=== PATIENT | female | born 1985 | race Caucasian/White ===

== ENCOUNTER 2018-06-01 13:01 | Observation (INO) ==
--- NOTE | 2018-06-01 13:41 | Surgery Consultation ---
Date of Consultation June 01, 2018 Assessment & Plan (1) Acute appendicitis: 32-year-old female with 1 week history of abdominal pain, outpatient CT scan confirmed acute appendicitis. Plan- recommend Laparoscopic Appendectomy, Possible Open Appendectomy in OR today with Dr. Healy. Risks of surgery reviewed with patient. Patient agrees with treatment plan. Urine test ordered. Patient NPO since last evening. SCDs Supervising Physician Co-Signing Physician Notes Patient seen and examined, labs and imaging reviewed, agree with above. 32 y/o female with 1 week lower abdominal pain, migrated to [facility] over weekend. CT at [facility] with acute, uncomplicated appendicitis. Plan for laparoscopic appendectomy, possible open. Risks reviewed to include bleeding, infection, conversion to open, need for future or more extensive surgery, normal appendix, abscess, and risks of anesthesia. Clindamycin pre op. Plan of care discussed, all questions answered, agrees with plan of care. History of Present Illness Reason for Consultation: Acute Appendicitis History of Present Illness Ms. Durham is a 32-year-old female who presents to ED following outpatient CT scan confirming acute appendicitis. Patient states that she has been having intermittent lower quadrant abdominal pain for the last week. She states that at first she was constipation and she took two doses of Maalox which helped her move her bowels, but her abdominal pain did not resolve. She states that her abdominal pain really increased in intensity in the right lower quadrant yesterday evening. She called he PCP this AM who ordered an outpatient CT scan- ct scan came back showing acute appendicitis. Bloodwork obtained a [facility] showed slight elevation in WBC 11.23. Patient states that she does not take any daily medications. Past surgical history includes x 3, surgery for endometriosis- pt states that she had incisional endometriosis and mesh placement in left abdomen. Patient denies use of blood thinning medications. Allergies Allergy/AdvReac Type Severity Reaction Status Date / Time amoxicillin Allergy Mild Rash Verified 06/01/18 14:34 cephalexin [From Keflex] Allergy Mild Rash Verified 06/01/18 14:34 Home Medications Home Medications Medication Instructions Recorded Confirmed Type No Known Home Medications 06/01/18 06/01/18 History Patient History Medical History Endometriosis (Acute) Surgical History History of section (Acute) Social History Feels Safe at Home: Yes Smoking Status: Never smoker Physical Exam Vital Signs (Past 24 Hours): Last Vital Signs Temp 37.3 C 06/01/18 13:04 Pulse 103 H 06/01/18 13:04 Resp 20 06/01/18 13:04 BP 139/92 06/01/18 13:04 Pulse Ox 98 06/01/18 13:04 Gastrointestinal (Abdomen): Percussion/Palpation: + abdomen tender (right lower quadrant. ) and abdomen soft
[2018-06-01] MEDS ORDERED: SODIUM CHLORIDE 0.9% 1000ML 1,000 ML IV SCH (13:45)
[2018-06-01] MEDS ORDERED: BUPIVACAINE 0.5 % 5 MG/1 ML MPF 30ML VIAL ONE (13:50)
[2018-06-01] MEDS ORDERED: ROCURONIUM BROMIDE 10 MG/ML 5 ML VIAL ONE (14:12)
[2018-06-01] MEDS ORDERED: PROPOFOL IV EMULSION 10 MG/ML 20 ML VIAL IV ONE (14:12)
[2018-06-01] MEDS ORDERED: LIDOCAINE HCL 2% 2 ML VIAL/AMP(20MG/ML) INFIL ONE (14:12)
[2018-06-01] MEDS ORDERED: MIDAZOLAM HCL 1 MG/ML 2ML VIAL ONE (14:13)
[2018-06-01] MEDS ORDERED: fentaNYL citrate 100 MCG/2 ML VIAL ONE ×2 (14:13→15:19)
[2018-06-01 14:46] LABS: Pregnancy Test, Urine Negative (Negative)
[2018-06-01] MEDS ORDERED: fentaNYL citrate 100 MCG/2 ML VIAL IV PRN (14:54)
[2018-06-01] MEDS ORDERED: ONDANSETRON INJ 2 MG/ML 2 ML VIAL IV PRN ×2 (14:54→16:18)
[2018-06-01] MEDS ORDERED: ATROPINE SULFATE 0.1 MG/ML 10ML SYR IV PRN (14:54)
[2018-06-01] MEDS ORDERED: ePHEDrine sulfate 50 MG/ML AMP IV PRN (14:54)
[2018-06-01] MEDS ORDERED: PROMETHAZINE HCL 6.25 MG in SODIUM CHLORIDE 0.9% 50 ML IV PRN (14:54)
[2018-06-01] MEDS ORDERED: HYDROmorphone INJ 2 MG/ML SYR/VIAL IV PRN (14:54)
--- NOTE | 2018-06-01 14:54 | Anesthesiology Consultation ---
Date of Service June 01, 2018 Assessment & Plan (1) Encounter for pre-operative examination: Chart Review Chart Review: Acceptable Risk for Surgery and Patient NOT seen in Pre Admission Testing Consults Requested none ASA [id number] Proposed Anesthesia Anesthesia Type: General Risk / Benefits Reviewed With: PT / POA / Parent / Guardian, Accepts Plan and I nformed Consent Obtained NPO Date Last Intake of Fluids: 06/01/18 Time Last Intake of Fluids: 10:00 Last Intake of Fluids Comment: CT PREP Date Last Intake of Solids: 05/31/18 Time Last Intake of Solids: 23:00 History Surgery Operation Date: 06/01/18 08:20 Proposed Procedures p Laparoscopic Appendectomy - Epifanio Healy, , FACS Height/Weight Height: 5 ft 6 in Weight: 101.4 kg Allergies Allergy/AdvReac Type Severity Reaction Status Date / Time amoxicillin Allergy Mild Rash Verified 06/01/18 14:34 cephalexin [From Keflex] Allergy Mild Rash Verified 06/01/18 14:34 Medications Home Medications Medication Instructions Recorded Confirmed Last Taken No Known Home Medications 06/01/18 06/01/18 Unknown Past Medical History Medical History Endometriosis (Acute) Past Surgical History Surgical History History of section (Acute) Social History Smoking Status: Never smoker Physical Exam Vital Signs Last Vital Signs Temp 36.8 C 06/01/18 14:36 Pulse 96 H 06/01/18 14:36 Resp 20 06/01/18 14:36 BP 153/85 H 06/01/18 14:36 Pulse Ox 98 06/01/18 14:36 Constitutional + obese ENMT Mouth: no TMJ abnormality Thyromental Distance: > or= 3.5 Finger Breadths Mallampati Class: I Neck normal visual inspection and + thick neck Respiratory normal respiratory effort, lungs clear to auscultation normal respiratory effort Cardiovascular RRR, no murmur, no edema Rate/Rhythm: regular rate and regular rhythm Musculoskeletal Extremities: extremities normal to inspection Neurologic moves all extremities Psychiatric Orientation: alert Testing Laboratory Results Urine Test Negative (Negative) 06/01/18 13:18 06/01/18 13:18 Urine Test Negative
[2018-06-01] MEDS ORDERED: ACETAMINOPHEN 1000 MG/100 ML IV IV ONE (15:37)
[2018-06-01] MEDS ORDERED: HYDROmorphone INJ 2 MG/ML SYR/VIAL ONE (15:41)
[2018-06-01] MEDS ORDERED: GLYCOPYRROLATE 0.2 MG/ML VIAL ONE (15:48)
[2018-06-01] MEDS ORDERED: ONDANSETRON INJ 2 MG/ML 2 ML VIAL ONE (15:48)
[2018-06-01] MEDS ORDERED: NEOSTIGMINE METHYLSULFATE 5 MG/5 ML SYR ONE (15:48)
[2018-06-01] MEDS ORDERED: DEXAMETHASONE SOD INJ 4 MG/ML VIAL ONE (15:48)
--- NOTE | 2018-06-01 16:05 | Operative Report ---
Post Operative Report Pre & Post Diagnosis Operation Date: 06/01/18 08:20 Pre-Op Diagnosis: Acute Appendicitis Post-Op Diagnosis: Acute Appendicitis Procedure Operation Date: 06/01/18 08:20 Actual Procedures p Laparoscopic Appendectomy(Not Applicable) - Epifanio Healy DO, POLI Surgeon Epifanio Healy DO, POLI Police Aide Sidra Holden Estimated Blood Loss 5 Findings Consistent with Post-Op Diagnosis aucte, non perforated appendicitis Specimens appendix Anesthesia Type General Complications none Disposition Accompanied Patient To Recovery: No Disposition: Recovery Room Indications 32-year-old female with 1 week of abdominal pain with CT scan that showed acute, uncomplicated appendicitis, plan for laparoscopic appendectomy, possible open. The risks of the procedure were discussed, all questions were answered, and the patient agreed to proceed with surgery as planned. Description of Procedure The patient was properly identified, consented, and taken to the operating room where she was placed in the supine position. General endotracheal anesthesia was induced. SCDs and a safety belt were placed. Preoperative antibiotics were administered. A Ortiz catheter was not placed. The patient's abdomen was prepped and draped in the standard sterile fashion. Surgical timeout was performed and all parties were in agreement that this was the correct patient and procedure to be performed and we continued as planned. A curvilinear infraumbilical incision was made with electrocautery and deepened down to the fascia with blunt dissection. The base of the umbilicus was grasped with a Kunal and elevated towards the ceiling. An incision was made in the midline fascia with a knife and entry into the peritoneum was confirmed. Stay suture of 0 Vicryl was placed and a Flood trocar was inserted. The abdomen was insufflated with carbon dioxide which the patient tolerated without incident. The laparoscope was inserted and no damage from initial trocar placement was noted, no gross abnormalities were noted within the 4 quadrants the abdomen. 5 mm ports were then placed in the left lower quadrant with care not to damage the epigastric vessels, and in the suprapubic midline with care not to damage the bladder. The patient was placed in Trendelenburg position and rotated towards the left. The small bowel was swept away from the right lower quadrant. There were some adhesions of the small bowel to the dilated inflamed appendix. The cecum was grasped with an atraumatic grasper exposing the appendix. The appendix was mildly inflamed and there was no evidence of perforation. There was moderate amount of reactive fluid in the pelvis. A window was created between the base of the appendix and the mesoappendix. A peripheral loaded endoscopic stapler was then used to divide the appendix at its base. A hartley load was then used to divide the mesoappendix. Hemostasis was good. The appendix was placed in an Endo Catch bag and removed through the umbilical port site. The right lower quadrant and pelvis was irrigated and hemostasis was found to be good. 5 mm trochars were removed under direct visualization and the abdomen was allowed to collapse. The umbilical port site fascia was closed with 0 Vicryl suture. The wound was irrigated, and the skin of all ports was closed with 4-0 Monocryl subcuticular sutures. Dermabond was placed over the wounds. The patient was extubated in the operating room and taken to the PACU where she recovered without apparent incident. All sponge, instrument and needle counts were correct at the conclusion of the procedure. The patient tolerated the procedure well. The physician's medical staff assistant was present and scrubbed for the entire the case. She is critical in positioning the patient, prepping and draping, retraction exposure, driving laparoscope, removal of the appendix, closed the incisions, placement of the dressings. I attest to the content of the Intraoperative Record and any orders documented therein. Any exceptions are noted below.
[2018-06-01] MEDS ORDERED: OXYCODONE/ACETAMINOPHEN 5mg/325mg TAB PO PRN ×2 (16:18)
[2018-06-01] MEDS ORDERED: MoRPHine SULFATE 2 MG/ML CARP IV PRN (16:18)
[2018-06-01] MEDS ORDERED: ACETAMINOPHEN 325 MG TAB PO PRN (16:18)
[2018-06-01] MEDS ORDERED: MoRPHine SULFATE 10 MG/ML CARP/VIAL IV PRN (16:18)
[2018-06-01] MEDS ORDERED: MoRPHine SULFATE 4 MG/ML 1 ML CARP\\VIAL IV PRN (16:18)
[2018-06-01] MEDS ORDERED: KETOROLAC 30 MG/ML VIAL ONE (16:23)
--- NOTE | 2018-06-01 16:48 | Anesthesiology Progress Note ---
Date of Service June 01, 2018 Anesthesia Post Procedure Vital Signs Vital Signs: Temp Pulse Pulse Pulse Resp BP BP 06/01/18 16:35 72 12 116/64 06/01/18 16:25 81 20 128/73 06/01/18 16:18 36.3 C L 82 21 134/75 06/01/18 14:36 36.8 C 96 H 20 06/01/18 14:22 97 H 16 06/01/18 13:04 37.3 C 103 H 20 139/92 BP Pulse Ox 06/01/18 16:35 98 06/01/18 16:25 100 06/01/18 16:18 97 06/01/18 14:36 153/85 H 98 06/01/18 14:22 156/108 H 98 06/01/18 13:04 98 Pain Intensity Abdomen: Pain Intensity: 0 Notes Mental Status: alert / awake / arousable and participated in evaluation Patient Amnestic to Procedure: Yes Nausea / Vomiting: adequately controlled Pain: adequately controlled Airway Patency, RR, SpO2: stable & adequate BP & HR: stable & adequate Hydration State: stable & adequate Anesthetic Complications: no major complications apparent and Pt Satisfied with anesthetic care
[2018-06-01] MEDS: LACTATED RINGER'S 1,000 ML IV SCH (23:40)
[2018-06-02] MEDS ORDERED: COUGH DROP (SUGAR FREE) LOZ 24 LOZ/1 BOX BUCCAL ONE (00:04)
[2018-06-02] MEDS ORDERED: CLINDAMYCIN 600 MG/54 ML BAG IV SCH (06:00)
[2018-06-02] MEDS: LACTATED RINGER'S 1,000 ML IV SCH ×2 (07:10→09:54)
--- NOTE | 2018-06-02 07:53 | Surgery Progress Note ---
Date of Service June 02, 2018 Assessment & Plan (1) Acute appendicitis: POD 1 lap appy ready for d/c Subjective tolerating diet, minimal pain Physical Exam Vital Signs (Past 24 Hours): Last Vital Signs Temp 36.6 C 06/02/18 03:21 Pulse 84 06/02/18 03:21 Resp 16 06/02/18 03:21 BP 112/73 06/02/18 03:21 Pulse Ox 97 06/02/18 03:21 Gastrointestinal (Abdomen): Inspection/Auscultation: + abdominal surgical incision (clean, dry); abdomen not distended Percussion/Palpation: abdomen soft
--- NOTE | 2018-06-09 08:15 | Discharge Summary ---
Date of Service June 09, 2018 Admission HPI Per Admitting Provider Ms. Durham is a 32-year-old female who presents to ED following outpatient CT scan confirming acute appendicitis. Patient states that she has been having intermittent lower quadrant abdominal pain for the last week. She states that at first she was constipation and she took two doses of Maalox which helped her move her bowels, but her abdominal pain did not resolve. She states that her abdominal pain really increased in intensity in the right lower quadrant yesterday evening. She called he PCP this AM who ordered an outpatient CT scan- ct scan came back showing acute appendicitis. Bloodwork obtained a [facility] showed slight elevation in WBC 11.23. Patient states that she does not take any daily medications. Past surgical history includes x 3, surgery for endometriosis- pt states that she had incisional endometriosis and mesh placement in left abdomen. Patient denies use of blood thinning medications. Principal Diagnosis Acute Appendicitis Discharge Exam Gastrointestinal (Abdomen) Percussion/Palpation: + abdomen tender (right lower quadrant. ) and abdomen soft Discharge Data Allergies Allergy/AdvReac Type Severity Reaction Status Date / Time amoxicillin Allergy Mild Rash Verified 06/01/18 14:34 cephalexin [From Keflex] Allergy Mild Rash Verified 06/01/18 14:34 Procedures Performed Operation Date: 06/01/18 08:20 Actual Procedures p Laparoscopic Appendectomy(Not Applicable) - Epifanio Healy DO, FACS Hospital Course (1) Acute appendicitis: Pre-Op Diagnosis: Acute Appendicitis Post-Op Diagnosis: Acute Appendicitis Procedure Operation Date: 06/01/18 Actual Procedures p Laparoscopic Appendectomy- Epifanio Healy DO, FACS POD 1 lap appy ready for d/c Return precautions reviewed. All questions answered. Patient to follow-up in General Surgery clinic. Total Time Total Time Spent Total Time Spent (In Minutes): 5 Discharge Plan Discharge Items Patient Disposition: Home - Self-Care Reason For Visit: S/P LAPAROSCOPIC APPENDECTOMY Discharge Diagnosis: Acute Appendicitis Discharge Goals: Decrease discomfort and Improve function Activity: As commented below Lifting: No more than 10 pounds Bathing Comment: You may shower, but do not soak or scrub your incisions. Exercise/Sports: Wait until after follow-up appointment Driving/Machine Use: Resume 1 day after discharge Non-emergency contact: Surgeon Call non-emergency contact if: you have any medication questions, your pain is not controlled, your temperature is above 101.5, your wound has increased redness and your wound has increased drainage Follow-up/Referrals: Epifanio Healy, POLI CASTANEDA [Emergency Provider] - (Please call the General Surgery clinic at [phone] to schedule a follow-up appointment with Dr. Healy. Your follow-up appointment will be at our clinic located at [address] [place] [address], [place] [address]. ) Boris Sher MD [Primary Care Provider] - Diet: Regular Addtl Provider Instructions: You have surgical glue, Dermabond, over your incisions. You may shower, but do not soak or scrub your incisions. Do not submerge your incisions in any pools, baths, or hot tubs. Please call the General Surgery clinic at [phone] to schedule a follow-up appointment with Dr. Healy. Stand-Alone Forms: Call Back Authorization, [facility], [facility]/Other Patient Handouts: Oxycodone Hydrochloride Acetaminophen Oral tablet Discharge Orders: Discharge Order (Routine); Ordered 06/02/18 Ordered By: Rasheed Anderson Admission Data Admit Date/Time: 06/01/18 16:19 Attending Provider: Epifanio Healy Admit Provider: Epifanio Healy Primary Care Provider: Boris Sher Service: Surgical Services Other Interventions: Discharge Summary Assessment (RN) Last Done: 06/02/18 10:03 Pending Studies at Discharge: Yes Studies:: Pathology report. DC Date/Time DO NOT enter until pt leaves facility: 06/02/18 10:34
== END 2018-06-02 10:34 | disposition home or self-care (01) ==
LOC: ED 13:01 → ASU 14:32 → 3N 14:32